=== PATIENT | male | born 1985 | race Caucasian/White ===

== ENCOUNTER 2017-12-04 16:03 | Emergency (ER) | payer OTHER ==
[2017-12-04 18:47] VITALS: BP 130/86
[2017-12-04] MEDS ORDERED: Aspirin Low Dose CHEW TAB* 81 MG PO ONE ×2 (18:58→19:07)
[2017-12-04] MEDS ORDERED: Aspirin TAB* 325 MG PO ONE (19:01)
[2017-12-04] MEDS ORDERED: Aspirin Low Dose CHEW TAB* 81 MG ONE (19:06)
--- NOTE | 2017-12-05 08:00 | UC ---
Cardiac HPI - HPI Summary HPI Summary: 32 yh/o male presents to the [facility] c/o left side chest pain that radiates to the left arm since last night 12/03/2017. Pt reports he did some aerobic exercise, jumping jacks yesterday evening. 2 hrs later, the chest pain began, near the epigastric area. He took Ibuprofen 400mg PO. Pain subside. Then, he woke up around 0300 Am with similar chest pain, sharp, 5/10. He took another Ibuprofen PO and applied a heat pad to alleviate symptoms. He felt sleep and pain rsolved. This afternoon chest pain returned around 1530pm. Pt denies palpitations abdominal pain, SOB, diaphoresis, GUZMAN, dizziness, N/V/D. - History of Current Complaint Chief Complaint: UCUpperExtremity Stated Complaint: LEFT SHOULDER PAIN Time Seen by Provider: 12/04/17 18:44 Hx Obtained From: Patient Onset/Duration: Sudden Onset, Lasting Days - 1 day, Still Present Initial Severity: Mild Current Severity: Moderate Pain Intensity: 5 Chest Pain Location: Left Anterior, Left Lateral Character: Sharp/Stabbing Aggravating Factor(s): Exertion Alleviating Factor(s): OTC Meds Associated Signs & Symptoms: Positive: Negative. Negative: Dizziness, SOB, Diaphoresis, Nausea/Vomiting, Palpitations, Back Pain, Abdominal Pain - Risk Factors Pulmonary Embolism Risk Factors: Negative Cardiac Risk Factors: Negative Atrial Fibrillation: Negative TAD Risk Factors: Negative - Allergy/Home Medications Allergies/Adverse Reactions: Allergies Allergy/AdvReac Type Severity Reaction Status Date / Time No Known Allergies Allergy Verified 12/04/17 18:47 Home Medications: Home Medications NK [No Home Medications Reported] 12/04/17 [History Confirmed 12/04/17] PMH/Surg Hx/FS Hx/Imm Hx Previously Healthy: Yes - Pt denies PMHX - Surgical History Surgical History: None - Family History Known Family History: Positive: Unknown - Pt do not know any FMHX - Social History Occupation: Employed Full-time Lives: With Family Alcohol Use: None Substance Use Type: None Smoking Status (MU): Never Smoked Tobacco Review of Systems Constitutional: Negative Skin: Negative Eyes: Negative ENT: Negative Respiratory: Negative Cardiovascular: Chest Pain - radiating to the left arm Gastrointestinal: Negative Genitourinary: Negative Motor: Negative Neurovascular: Negative Musculoskeletal: Negative Neurological: Negative Psychological: Negative Is Patient Immunocompromised?: No All Other Systems Reviewed And Are Negative: Yes Physical Exam Triage Information Reviewed: Yes Vital Signs: Initial Vital Signs Temp 99.2 F 12/04/17 18:34 Pulse 55 12/04/17 18:34 Resp 15 12/04/17 18:34 BP 130/86 12/04/17 18:34 Pulse Ox 100 12/04/17 18:34 - Additional Comments Vital signs: reviewed General: well developed, well nourished male sitting in the examining table w/o any pain or reparatory acute distress Skin: [place], warm and dry, no diaphoresis, cyanosis or pallor. HEENT: -Head: normocephalic -Eyes: PERRLA, sclera and conjunctiva clear. -Ears:canals and TMs normal. -Nose: patent -Mouth/Throat: MMM, posterior pharynx clear. Neck: supple. FROM, No JVD, trachea in midline, no bruits. Chest: no orthopnea or dyspnea noted; no retractions or accessory muscle use, point tenderness on left side of sternum, w/o swelling or erythema observe, no crepitus, CTA bilaterally, no wheezes, rhonchi, rales. Heart: RRR, no murmur, rub, or gallop. Abd: soft, NT, BSA, no epigastric tenderness, mass, pulsation; femoral pulses. Back: NT, no CVAT Extrems: no swelling, edema, tenderness. Neuro: A&O x 4, GCS 15, CNII XII intact, no LOC and no focal neuro deficits. - Assessment/Plan Course Of Treatment: 32 yh/o male presents to the [facility] c/o left side chest pain that radiates to the left arm since last night 12/03/2017. Pt reports he did some aerobic exercise, jumping jacks yesterday evening. 2 hrs later, the chest pain began, near the epigastric area. He took Ibuprofen 400mg PO. Pain subside. Then, he woke up around 0300 Am with similar chest pain, sharp , 5/10. He took another Ibuprofen PO and applied a heat pad to alleviate symptoms. He felt sleep and pain resolved. This afterrnoon chest pain returned around 1530pm. Pt denies palpitations abdominal pain, SOB, diaphoresis, GUZMAN, dizziness, N/V/D. Hx obtained. Pt W/ point tenderness over the left side of sternum on examiantion. EKG ordened: Sinus bradycardia, HR: 57bpm. With T-wave inversion at leads III and AvF, abnormal EKG. No other EGG for comparison, Unknow FMHX of cardiac disease. Pt's symptoms disscussed with DR Burton. She recommended ASA and Pt should go to the ER by ambulance for further work-up. ASA 324 mg PO given to Pt. EKG discussed with Pt and hihgly recommeded to go to the ER by ambulance due to abnormal EKG to r/o WI or any othr cardiac etiology. Pt was offered ambulance tranfers and risk of not going by ambulance. Pt declined ambulance trnasfer and states his will take him to [facility] by Private car. I called [facility] and spoke to Dr Wilmer Montiel, who accepted the patient. Pt signed AMA. Pt agreed with D/C instructions. Pt left the clinic hemodynamically stable, A&OX3 and ambulating w/o any distress. - Differential Diagnoses - Chest Pain Differential Diagnosis/HQI/PQRI: Acute WI, Angina, Chest Wall - Clinical Impression Provider Diagnoses: 1- Left side chest pain Discharge - Discharge Plan Condition: Stable Disposition: AGAINST MEDICAL ADVICE Discharge Disposition Comment: Pt hihgly reommeded to go to [facility] by ambulance for further Tx Patient Education Materials: Chest Pain (ED) Referrals: Luis Fernando Lara MD [Primary Care Provider] - Additional Instructions: I think you need a higher level or care for your chest pain symptoms. I highly recommend you to go to the ER for further evaluation and treatment. The risks of not going can be , heart attack, sepsis etc. I spoke to the ER attending Dr.Donald Montiel . They are expecting you.
== END 2017-12-04 19:15 | disposition left against medical advice (07) ==
LOC: UCCORT 16:03
DX: R07.89 Other chest pain (principal); M25.512 Pain in left shoulder; R00.1 Bradycardia, unspecified
CPT/HCPCS: 93005; 99212; A9270-GY; G0463